=== PATIENT | male | born 1995 | race African-American/Black ===

== ENCOUNTER 2017-07-21 10:23 | Emergency (ER) | payer SELFPAY ==
[~2017-07-21] VITALS: Ht 193 cm; Wt 70.0 kg
[2017-07-21 10:24] VITALS: BP 109/57; PULSE 78; RESP 12; TEMP 98.7; O2SAT 100
--- NOTE | 2017-07-21 10:44 | PD ---
HPI Chief Complaint: ENT Complaint Time Seen by Provider: 10:36 Travel History International Travel<30 days: No Contact w/Intl Traveler<30days: No Traveled to known affect area: No History of Present Illness HPI 21-year-old male presents to the emergency department complaining of sore throat for 1 week. Patient states that she he has not tried any medication to relieve his pain. States that his pain is constant and mild. States he has pain with swallowing. Patient denies neck pain, back pain, urinary symptoms. Patient denies fever, chills, chest pain, shortness of breath, nausea, vomiting , diarrhea. Patient denies cough or congestion. Denies problems swallowing, drooling. Patient says he has been around sick contacts with the common cold. Patient denies chronic medical issues or chronic medication use. Patient does not have a primary care physician. [facility] Social History Tobacco Use: No Review of Systems Except as stated in HPI: all other systems reviewed are Neg Physical Exam Narrative GENERAL: Well-developed well-nourished in no apparent distress SKIN: Focused skin assessment warm/dry. HEAD: Atraumatic. Normocephalic. EYES: Pupils equal and round. No scleral icterus. No injection or drainage. ENT: No nasal bleeding or discharge. Mucous membranes pink and moist. Pharynx mildly injected without tonsillar patch clear exudate. NECK: Trachea midline. No JVD. No lymphadenopathy CARDIOVASCULAR: Regular rate and rhythm. No murmur appreciated. RESPIRATORY: No accessory muscle use. Clear to auscultation. Breath sounds equal bilaterally. GASTROINTESTINAL: Abdomen soft, non-tender, nondistended. Hepatic and splenic margins not palpable. No CVA tenderness MUSCULOSKELETAL: No obvious deformities. No clubbing. No cyanosis. No edema. NEUROLOGICAL: Awake and alert. No obvious cranial nerve deficits. Motor grossly within normal limits. Normal speech. PSYCHIATRIC: Appropriate mood and affect; insight and judgment normal. Data Data Last Documented VS Vital Signs Date Time Temp Pulse Resp B/P (MAP) Pulse Ox O2 Delivery O2 Flow Rate FiO2 07/21/17 10:39 18 07/21/17 10:24 98.7 78 109/57 (74) 100 MDM Medical Decision Making Medical Screen Exam Complete: Yes Emergency Medical Condition: No Differential Diagnosis Strep pharyngitis, viral pharyngitis, allergic pharyngitis Narrative Course 21-year-old male presents to the emergency department complaining of sore throat for 1 week. Patient states that she he has not tried any medication to relieve his pain. States that his pain is constant and mild. States he has pain with swallowing. Patient denies neck pain, back pain, urinary symptoms. Patient denies fever, chills, chest pain, shortness of breath, nausea, vomiting , diarrhea. Patient denies cough or congestion. Denies problems swallowing, drooling. Patient says he has been around sick contacts with the common cold. Patient denies chronic medical issues or chronic medication use. Vital signs stable Physical exam consistent with viral pharyngitis. Patient has had sick contacts with a common cold. Patient denies any concerns for swallowing or breathing. Patient requires symptomatic care to include salt water gargles. Centor criteria 0. Advised patient follow up with [facility]. A medical screening exam was performed: At the time of evaluation the presenting medical condition was determined not to be of an emergent nature. The patient was given the option of receiving additional care, but declined. Patient was given options for additional community resources from which to obtain care. The Patient Has Been advised to seek medical attention for their presenting complaint. The patient has been advised to return to the ER at any time if an emergent condition develops. Diagnosis Primary Impression: Encounter for medical screening examination Disposition: 01 DISCHARGE HOME Condition: Stable Prerna Burns Jul 21, 2017 10:44
== END 2017-07-21 10:57 | disposition left against medical advice (07) ==
LOC: NEPK 10:23
DX: J02.9 Acute pharyngitis, unspecified (principal)
CPT/HCPCS: 99281